=== PATIENT | male | born 1985 | race Two or more races ===

== ENCOUNTER → 2016-10-27 | Outpatient (CLI) | payer OTHER ==
[2016-10-27 11:40] VITALS: BP 112/71
[2016-10-27 12:20] VITALS: BP 115/67
== END | disposition home or self-care (01) ==
LOC: Rad HDHVI 11:07
PROVIDERS: ATTEND Internal Medicine Cardiovascular Disease
DX: I31.8 Other specified diseases of pericardium (principal)
CPT/HCPCS: 71275; 93306; G0463